=== PATIENT | female | born 1965 | race Caucasian/White ===

== ENCOUNTER 2017-01-14 17:09 | Emergency (ER) | payer BC ==
[~2017-01-14] VITALS: Ht 167.6 cm; Wt 90.7 kg
--- NOTE | 2017-01-14 18:12 | [facility] Report ---
History of Present Issue Date/Time Seen by Provider 01/14/172 Visit Reason Pt arrived:Walked Presenting Problem:PT REPORTS R LOWER BACK PAIN X4 DAY, REPORTS LOWER ABD PAIN/ PRESSURE/ BLOATED FEELING X3 DAYS WITH FREQUENT URINATION Location if Accident: Onset of symptoms date/time:01/10/17/ or onset unknown for:MEDICAL HX UNKNOWN Have you (or family members/close friends) recently traveled outside the [facility]? If Yes, where/when: Have you had exposure to infectious disease within the past month? TB? Other? Specify: c/o "I think a UTI". [place]by low back pain x3-4 days. hx of arthritis but "this doesn't feel like that". Dull ache. Worse with sitting in one position too long. No N/T, no pain kolby hips or LEs. Contributes it to kidneys. Also urinary frequency, kolby lower abdominal pressure and bloating x2-3 days. Denies fever, chills, aches, change urine color or smell, vaginal discharge. + nausea. No vomiting or diarrhea. Normal BMs. LMP finished 3-4 days ago. Ibuprofen helps. No recent UTIs. Recently moved back to [place]. Still seeing PCP in [place]. Source patient Exam Limitations no limitations ALLERGIES Coded Allergies: No Known Allergies (01/14/17) Home Medications Reported Medications Metformin HCL (Metformin) 500 MG PO DAILY Levothyroxine Sodium (Levothyroxine 0.075MG) (Unknown Dose) PO DAILY Losartan Potassium (Losartan 100MG) 100 MG PO DAILY History Medical History General CAD? No Hypertension? Yes Hyperlipidemia? No Thyroid Problems? Yes Hypothyroidism? Yes Diabetes? Yes ("well borderline") Renal Insuffiency? No UTI? No Stones? No Immunization HX DT/Tetanus 1-4 Years Ago Surgical Hx Previous Surgery?N EXERCISE PHYSIOLOGIST CERTIFIED Hx LMP 1 Week Ago Social History Smoking Hx Smoker: Current Every Day Smoker Alcohol Alcohol: No Drug Use none Review of Systems All Other Systems Reviewed and Negative Constitutional see HPI Respiratory denies shortness of breath Cardiovascular denies chest pain, denies edema Gastrointestinal see HPI Genitourinary see HPI. denies: hesitancy, hematuria, dyspareunia, pain. Musculoskeletal see HPI Skin denies change in color, denies lesions, denies lumps, denies rash Psychiatric/Neurological see HPI Physical Exam Vital Signs Vital Signs Date Time Temp Pulse Resp B/P Pulse O2 O2 Flow FiO2 Ox Delivery Rate 01/14 181 98.3 65 18 159/76 98 01/14 1715 98.3 65 18 159/ 98 General Appearance no apparent distress, obese Neck non-tender, supple, full range of motion Respiratory Status No: respiratory distress. Lung Sounds anterior: lungs clear. posterior: lungs clear. bilateral: lungs clear. Cardiovascular regular rate/rhythm, no peripheral edema, no murmur Gastrointestinal normal bowel sounds, non tender, soft, no organomegaly, no guarding, no rebound, no suprapubic tenderness, no bladder distention Back normal inspection, no CVA tenderness, no vertebral tenderness, gait normal, strt leg raising(L)-NML, strt leg raising(R)-NML, mild kolby lumbar region tenderness Extremities non-tender (BLE), normal range of motion (BLE), normal inspection ( BLE) Strength 5 Lower Ext (L), 5 Lower Ext (R) Neurologic alert, no motor/sensory deficits, oriented x 3 Skin normal color, warm/dry Medical Decision Making LABS/Meds/Orders Pt receiving controlled substance in ED? No Results/Orders Laboratory Tests 01/14/171841: Sodium 137, Potassium 3.7, Chloride 103, Carbon Dioxide 26, BUN 7, Creatinine 0.8, Estimated Creat Clear 122, Estimated GFR (MDRD) 76, Glucose 172 H, Calcium 8.7, WBC 7.1, RBC 4.56, Hgb 14.9, Hct 42.4, MCV 93.0, RDW 13.8, Plt Count 212, MPV 8.5, Gran % 63.0, Gran # 4.5, Lymphocytes % 30.2, Monocytes % 3.9, Eosinophils % 2.6, Basophils % 0.3, Lymphocytes # 2.1, Monocytes # 0.3, Eosinophils # 0.2, Basophils # 0.0, PUBS MCHC 35.1, MCH 32.7 H 01/14/171818: Urine Color YELLOW, Urine Appearance Clear, Urine pH 5.5, Ur Specific [place] 1.015, Urine Protein NEGATIVE, Urine Ketones NEGATIVE, Urine Blood TRACE H, Urine Nitrate NEGATIVE, Urine Bilirubin NEGATIVE, Urine Urobilinogen 0.2, Ur Leukocyte Esterase NEGATIVE, Urine Glucose NEGATIVE Orders Procedure Date/time Status CULTURE, URINE 01/15 1832 Active CBC WITH AUTO DIFF 01/15 1832 Complete BASIC METABOLIC PROFILE 01/15 1832 Complete UTC URINE DIPSTICK 01/14 1819 Complete Progress UTC Progress Notes Date 01/14/17 Time 1922 Comment Discussed results. Pt agrees to follow up with PCP's office tomorrow. Declined anything for pain while in clinic. rvwd safe use of naproxen. Departure Departure Time of Disposition 1922 Disposition DC Home or Self Care(routine) Clinical Impression Primary Impression: Hematuria Qualifiers: Hematuria type: unspecified type Qualified Code: R31.9 - Hematuria, unspecified Secondary Impressions: Low back pain Qualifiers: Chronicity: acute Back pain laterality: bilateral Sciatica presence : without sciatica Qualified Code: M54.5 - Low back pain Condition STABLE Referrals NO REFERRAL Call your primary care in [place] tomorrow. Schedule a follow up within the next 2 days. Notify her we collected blood, urine and sent urine for a culture so she can follow up on those results. Patient Instructions DI for Hematuria, DI for Low Back Pain Additional Instructions * naproxen every 12 hours with meal as needed for pain/inflammation. * No additional anti-inflammatories like motrin, aleve, advil with the above amount of naproxen. You CAN still take Tylenol every 4 hours as needed if you need something more for pain. * Ice x15-20 mins 3-4 times a day but if that doesn' help, try moist heat x15-20 mins 3-4 times a day to affected area * Keep this area active. No movement leads to more stiffness. However, take it easy too and avoid heavy lifting, pushing, pulling. Discharge Counseling Counseled pt/family regarding diagnosis, test results, medications/RX, home care, follow up needs Prescriptions Current Visit Scripts NAPROXEN (NAPROSYN 500MG TAB) 500 MG PO BID #14 TAB take with food at 1926
[2017-01-14] MEDS ORDERED: LEVOTHYROXIN0.075 M1 PO (18:16)
[2017-01-14] MEDS ORDERED: METFORMIN500 MG PO (18:16)
[2017-01-14] MEDS ORDERED: LOSARTAN POTAS100 MG PO (18:17)
[2017-01-14 18:30] LABS: URINE BILIRUBIN - DIPSTICK NEGATIVE (NEG); URINE BLOOD TRACE (NEG)
[2017-01-14 18:52] LABS: HEMOGLOBIN 14.9 g/dL (12.2-16.2); LYMPH # 2.1 K/mm3 (0.7-4.5); LYMPH % 30.2 % (10-50.0)
[2017-01-14] MEDS ORDERED: NAPROSYN 500MG500 MG PO (19:26)
[2017-01-14 19:28] VITALS: BP 159/76
== END 2017-01-14 19:29 | disposition home or self-care (01) ==
LOC: ER 17:09 → UTC 17:31
PROVIDERS: Nurse Practitioner Family
DX: R31.9 Hematuria, unspecified (principal); M54.5 Low back pain; I10 Essential (primary) hypertension; Z72.0 Tobacco use